=== PATIENT | female | born 1985 | race Caucasian/White ===

== ENCOUNTER 2016-12-20 13:00 | Outpatient (RCR) ==
[2016-04-21 19:46] VITALS: BMI 35.5
--- NOTE | 2016-12-04 15:06 | RS.OPPTEV2 ---
Date of Note: 12/04/16 Visit #: 1 Date of Evaluation: 12/04/16 Payer Source: Medicaid Date of Onset/Injury/Change in Status: 05/25/16 Surgery Performed?: No Treatment Diagnosis: Right patellar chondromalacia History of Condition/Mechanism of Injury:: Patient has had ongoing pain for ~ 6 months. No specific injury occurred but she has been having increasing pian and stiffness over time. She was seen by an orthopedic who has referred her to PT for 5 wks for chondromalacia of the right knee. Prior Level of Function.....Patient was independent with: ADL's, Self Care, Work /Vocation, Caregiving, Ambulation/Mobility, Community Integration/Access Functional Limitations: Sleep, Lifting, Carrying, Sitting Current Subjective/complaints:: Right knee pain with some discomfort at all times. Sitting is her worst position. Treatment Side (optional): Right Medical History Medical History Comments:: Hx of left patellar fx as a child. Smoking Status: Current some day smoker Pain Assessment - Pain Description Pain Location: right mediodistal knee Pain Description: Aching Pain Description: Pain radiates into the mid medial calf at times. Current Pain Intensity: 3/10 Worst Pain Intensity: 10/10 Functional Outcome Measure LE Functional Scale: 37 - G Codes & Severity Modifier G Codes & Modifier: NA Source of G Code score: NA Observation - Observation Inspection: Patient has bilateral ankle pronation and flat arches. Gait - Gait Pattern General Gait Pattern Observation: No Deviations/Normal Knee ROM: Bilaterally WFL's Knee Muscle Strength: Left WFL's - Right Knee Strength Right Knee Extension: 4 Good Right Knee Flexion: 4 Good Comments: Minimal pain with testing in the right knee. - Special Tests Knee Anterior Drawer Test: Negative Left Knee Posterior Drawer Test: Negative Left Knee Valgus Stress Test: Negative Left Knee Varus Stress Test: Negative Left Patellar Compression Test: Negative Left Palpation Palpation Findings: None/Normal Sensation - Sensation Sensation Description: Within Normal Limits Interventions - Exercise/Activities/Manual Therapy Exercises/Activities: Patient was instructed on the need to be assessed and obtain orthotics for correction of ankle deviations. She verbalized understanding. Manual Therapy: NA - Charges Total Direct Minutes: 35 Total Treatment Time: 35 Procedures billed for this date of service:: PT Marcela (Low) Assessment Assessment: Right medial knee pain and RLE weakness. Patient Education: Education of diagnosis, Body/Joint mechanics, Activity Modification, Education of Plan of Care Rehab Potential: Good Short Term Goals Goal #1: Intermittent right knee discomfort. Goal to be met by: 12/21/16 Goal #2: Average right knee pain 3-4/10 Goal to be met by: 12/21/16 Goal #3: Patient independent in beginning HEP. Goal to be met by: 12/21/16 Assisted Goals Goal #1: Only occasional right knee pain. Goal to be met by: 01/11/17 Goal #2: 5/5 RLE strength for stability Goal to be met by: 01/11/17 Goal #3: Patient is unawakened by right knee pain. Goal to be met by: 01/11/17 Goal #4: Independent with HEP for DC. Goal to be met by: 01/11/17 Plan - Treatment to be Provided Procedures: Therapeutic Exercises, Therapeutic Activity, Gait Training, Manual Therapy, Splinting/Taping, Patient Education Modalities: Electrical Stimulation, Ultrasound/Phonophoresis, Class IV Laser, Cryotherapy, Hot Packs - Treatment Plan Frequency: 3 X week Duration: 6 weeks ORDER # VISITS AND/OR THROUGH DATE: 01/11/17 - Treatment Code (1) Chondromalacia of both patellae Code(s): M22.41
--- NOTE | 2016-12-07 14:32 | RS.OPPTDN ---
Subjective Date of Note: 12/07/16 Visit #: 2 Date of Evaluation: 12/04/16 Payer Source: Medicaid Treatment Diagnosis: Right patellar chondromalacia Current Subjective/complaints:: Patient says she has pain to the medial and distal portion of the knee. 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 Pain Assessment - Pain Description Pain Location: right mediodistal knee Pain Description: Aching Pain Description: Pain radiates into the mid medial calf at times. Current Pain Intensity: 3/10 - Treatment Modality: Ultrasound Parameters/Method Applied: Pulsed @ 20%, 1.0 w/cm2 to the R medial and distal knee x 12 mins Patient Position: Supine Interventions - Exercise/Activities/Manual Therapy Exercises/Activities: Patient performs QS, pillow squeezes, hip abd, SAQ, SLR ( 3x5) 2x10. Total minutes of Exercise: 17 Manual Therapy: NA HOME EXERCISE PROGRAM: Pillow squeezes, QS, SLR. Ice massage - Charges Total Direct Minutes: 29 Total Treatment Time: 29 Procedures billed for this date of service:: u/s, ex Assessment: Patient with mod pain to the R medial and distal knee as well as deep joint line pain. She has pain with ambulation. She appeared to sarina all therex well, showing some fatigue with SLR, so reps were reduced. Patient Education: Education of diagnosis, Body/Joint mechanics, Home Exercise Program, Home Safety, Activity Modification, Education of Plan of Care Short Term Goals Goal #1: Intermittent right knee discomfort. Goal to be met by: 12/21/16 Goal #2: Average right knee pain 3-4/10 Goal to be met by: 12/21/16 Goal #3: Patient independent in beginning HEP. Goal to be met by: 12/21/16 [place] Goals Goal #1: Only occasional right knee pain. Goal to be met by: 01/11/17 Goal #2: 5/5 RLE strength for stability Goal to be met by: 01/11/17 Goal #3: Patient is unawakened by right knee pain. Goal to be met by: 01/11/17 Goal #4: Independent with HEP for DC. Goal to be met by: 01/11/17 Plan PLAN OF CARE EXPIRES ON:: 01/11/17 ORDER # VISITS AND/OR THROUGH DATE: 01/11/17 PLAN: Continue Plan of Care
--- NOTE | 2016-12-12 12:01 | RS.OPPTDN ---
Subjective Date of Note: 12/12/16 Visit #: 3 Date of Evaluation: 12/04/16 Payer Source: Medicaid Treatment Diagnosis: Right patellar chondromalacia Current Subjective/complaints:: Patient reports elevated knee pain after last session.She reports the BIOFREEZE helps. Pain Assessment - Pain Description Pain Location: right mediodistal knee Pain Description: Aching Pain Description: superior aspect of the patella Current Pain Intensity: 3/10 - Treatment Modality: Ultrasound Parameters/Method Applied: 10 mins. ,20% cycle,@ 1.5 w/cm2 to R patellar area. Interventions - Exercise/Activities/Manual Therapy Exercises/Activities: 20 mins. quad sets,SAQ's,SLR's,also with hip in ER for VMO strengthening.HEP review. Total minutes of Exercise: 20 Manual Therapy: NA Total minutes of Manual Therapy: 0 HOME EXERCISE PROGRAM: Pillow squeezes, QS, SLR. Ice massage - Charges Total Direct Minutes: 30 Total Treatment Time: 30 Procedures billed for this date of service:: US,ex 1 Assessment: Patient is very attentive and motivated to improve .She has good quad firing with exercises ,with report of tightness,but no sharp pain in open chain motion.She reports increased aching inthe medial aspect of the R knee with VMO strengthening. Patient Education: Education of diagnosis, Body/Joint mechanics, Home Exercise Program, Home Safety, Activity Modification, Education of Plan of Care Patient demonstrates compliance with HEP?: Yes Short Term Goals Goal #1: Intermittent right knee discomfort. Goal to be met by: 12/21/16 Progress towards Goal:: Progressing Goal #2: Average right knee pain 3-4/10 Goal to be met by: 12/21/16 Progress towards Goal:: Progressing Goal #3: Patient independent in beginning HEP. Goal to be met by: 12/21/16 Progress towards Goal:: Progressing [employer] Goals Goal #1: Only occasional right knee pain. Goal to be met by: 01/11/17 Goal #2: 5/5 RLE strength for stability Goal to be met by: 01/11/17 Goal #3: Patient is unawakened by right knee pain. Goal to be met by: 01/11/17 Goal #4: Independent with HEP for DC. Goal to be met by: 01/11/17 Plan PLAN OF CARE EXPIRES ON:: 01/11/17 ORDER # VISITS AND/OR THROUGH DATE: 01/11/17 PLAN: Continue Plan of Care
--- NOTE | 2016-12-18 15:14 | RS.OPPTDN ---
Subjective Date of Note: 12/18/16 Visit #: 4 Date of Evaluation: 12/04/16 Payer Source: Medicaid Treatment Diagnosis: Right patellar chondromalacia Current Subjective/complaints:: Patient reports the R knee seems to hurt more than it did before therapy.We discussed modifying her exercises to possibly protect the knee more. Pain Assessment - Pain Description Pain Location: right mediodistal knee Pain Description: Aching Pain Description: superior aspect of the patella and medial of knee joint line Current Pain Intensity: not rated, - Treatment Modality: Ultrasound Parameters/Method Applied: 10 mins. @ 20%,1.0 w/cm2 to R patellar borders. Patient Position: Supine Interventions - Exercise/Activities/Manual Therapy Exercises/Activities: 20 mins. quad sets,SLR's only today,then patient education of knee anatomy and joint protection. Total minutes of Exercise: 20 Manual Therapy: NA Total minutes of Manual Therapy: 0 HOME EXERCISE PROGRAM: Pillow squeezes, QS, SLR. Ice massage - Charges Total Direct Minutes: 30 Total Treatment Time: 30 Procedures billed for this date of service:: US,ex Assessment: Patient has good return demo of exercises today,we discussed to avoid exercises that involve excessive flexion of the knee,especially if weight bearing. Patient Education: Education of diagnosis, Body/Joint mechanics, Home Exercise Program, Home Safety, Activity Modification, Education of Plan of Care Patient demonstrates compliance with HEP?: Yes Short Term Goals Goal #1: Intermittent right knee discomfort. Goal to be met by: 12/21/16 (more consistent pain ) Progress towards Goal:: Regressing Goal #2: Average right knee pain 3-4/10 Goal to be met by: 12/21/16 Goal #3: Patient independent in beginning HEP. Goal to be met by: 12/21/16 Progress towards Goal:: Progressing [employer] Goals Goal #1: Only occasional right knee pain. Goal to be met by: 01/11/17 Progress towards goal: Regressing Goal #2: 5/5 RLE strength for stability Goal to be met by: 01/11/17 Goal #3: Patient is unawakened by right knee pain. Goal to be met by: 01/11/17 Goal #4: Independent with HEP for DC. Goal to be met by: 01/11/17 Plan PLAN OF CARE EXPIRES ON:: 02/17/17 ORDER # VISITS AND/OR THROUGH DATE: 01/11/17 PLAN: Continue Plan of Care
--- NOTE | 2016-12-20 15:46 | RS.OPPTDN ---
Subjective Date of Note: 12/20/16 Visit #: 5 Date of Evaluation: 12/04/16 Payer Source: Medicaid Treatment Diagnosis: Right patellar chondromalacia Current Subjective/complaints:: Patient says she is now hurting underneath the R patella. She says she is no longer hurting on the sides of her knee and hopes it is not getting worse. States her pain is constant and moderate at the moment. Pain Assessment - Pain Description Pain Location: under the R patella Pain Description: Aching Pain Description: superior aspect of the patella and medial of knee joint line Current Pain Intensity: elevated - Treatment Modality: Ultrasound Parameters/Method Applied: using hydrocortisone to the R proximal patella and over the patella continuous @ 1.5 w/cm2, 3 mHz x 6 mins and then 6 mins pulsed @ 20% 1.0 w/cm2. Patient Position: Supine Interventions - Exercise/Activities/Manual Therapy Exercises/Activities: 13 mins. quad sets,SLR's, hip abd only today, Patient education on phonophoresis and continuing cryotherapy at home. Manual Therapy: NA HOME EXERCISE PROGRAM: Pillow squeezes, QS, SLR. Ice massage - Charges Total Direct Minutes: 25 Total Treatment Time: 25 Procedures billed for this date of service:: u/s, ex Assessment: Modified treatment to add hydrocortisone cream to further assist with pain reduction during u/s. Patient with elevated pain today which she points to the R patella proximally. She denies having pain to the medial/ lateral borders. No significant change noted. Patient Education: Education of diagnosis, Body/Joint mechanics, Home Exercise Program, Home Safety, Activity Modification, Education of Plan of Care Patient demonstrates compliance with HEP?: Yes Short Term Goals Goal #1: Intermittent right knee discomfort. Goal to be met by: 12/21/16 (more consistent pain ) Progress towards Goal:: Regressing Goal #2: Average right knee pain 3-4/10 Goal to be met by: 12/21/16 Goal #3: Patient independent in beginning HEP. Goal to be met by: 12/21/16 Progress towards Goal:: Progressing [employer] Goals Goal #1: Only occasional right knee pain. Goal to be met by: 01/11/17 Progress towards goal: Regressing Goal #2: 5/5 RLE strength for stability Goal to be met by: 01/11/17 Goal #3: Patient is unawakened by right knee pain. Goal to be met by: 01/11/17 Goal #4: Independent with HEP for DC. Goal to be met by: 01/11/17 Plan PLAN OF CARE EXPIRES ON:: 01/11/17 ORDER # VISITS AND/OR THROUGH DATE: 01/11/17 PLAN: Continue Plan of Care (continue with phonophoresis to verify any change in symptoms)
--- NOTE | 2017-01-01 14:21 | RS.QUICKDC ---
Discharge from PT Date of Discharge: 01/01/17 Number of Visits: 5 Reason for Discharge: Patient has not seen any improvement with knee pain. She admitted decreased pain at the medial/lateral border of the patella (R), but pain is moderate under the patella. She felt no relief with adding hydrocortisone for phonophoresis. HEP was given for general strengthening.
== END 2016-12-25 ==
PROVIDERS: ATTEND Orthopaedic Surgery
DX: M22.41 Chondromalacia patellae, right knee (principal)

== ENCOUNTER 2017-08-27 09:05 | Outpatient (CLI) ==
[2016-04-21 19:46] VITALS: BMI 35.5
[2017-08-27 09:43] LABS: BASOPHILS # (AUTO) 0.1 K/uL (0-0.2); BASOPHILS % (AUTO) 0.5 % (0.0-3.0); EOSINOPHILS # (AUTO) 0.2 K/ul (0.0-0.7); EOSINOPHILS % (AUTO) 1.8 % (0.0-7.0); HEMOGLOBIN 13.2 g/dl (12.0-16.0); IMMATURE GRANULOCYTE % (AUTO) 0.2 % (0.0-5.0); LYMPHOCYTES % (AUTO) 21.1 (10.0-50.0); MEAN CORPUSCULAR HEMOGLOBIN 28.5 pg (27.0-31.0); MEAN CORPUSCULAR HGB CONC 33.8 (31.8-35.4); MEAN CORPUSCULAR VOLUME 84.2 fl (81.0-99.0); MONOCYTES # (AUTO) 0.5 K/uL (0.4-2.0); MONOCYTES % (AUTO) 4.9 (0-10); NEUTROPHILS # (AUTO) 6.6 K/ul (2.0-6.9); NEUTROPHILS % (AUTO) 71.5; PLATELET COUNT 297 10^3/uL (140-440); RED BLOOD COUNT 4.63 10^6/ul (4.20-5.40); WHITE BLOOD COUNT 9.26 K/ul (4.6-10.2)
[2017-08-27 09:47] LABS: BILIRUBIN,URINE Negative (NEGATIVE); KETONES,URINE Negative (NEGATIVE); LEUKOCYTE ESTERASE ,URINE Negative (NEGATIVE); NITRITE,URINE Negative (NEGATIVE); PH,URINE 5.5 (5-9); PROTEIN,URINE Negative (NEGATIVE); URINE, BLOOD Negative (NEGATIVE)
[2017-08-27 09:52] LABS: ADD URINE MICROSCOPIC NO
[2017-08-27 10:24] LABS: ALBUMIN 3.6 g/dL (3.4-5.0); ALBUMIN/GLOBULIN RATIO 0.97; ANION GAP 10.1; BILIRUBIN,DIRECT 0.15 mg/dL (0.00-0.30); BILIRUBIN,TOTAL 0.38 mg/dL (0.00-1.20); BUN/CREATININE RATIO 16.9; CALCIUM 9.4 mg/dL (8.2-10.2); CHOL/HDL RATIO 4.6 (4.5-5.5); CREATININE 0.71 mg/dL (0.60-1.30); PHOSPHORUS 3.7 mg/dL (2.5-4.9); POTASSIUM 4.1 mmol/L (3.5-5.10); TOTAL PROTEIN 7.3 g/dL (6.4-8.2)
[2017-08-28 06:12] LABS: LUTEINIZING HORMONE 5.9 mIU/mL (.)
== END 2017-08-27 09:06 | disposition home or self-care (01) ==
LOC: LAB 09:05
PROVIDERS: ATTEND Nurse Practitioner
DX: F39 Unspecified mood [affective] disorder (principal); F41.9 Anxiety disorder, unspecified; H35.52 Pigmentary retinal dystrophy; H53.9 Unspecified visual disturbance; R51 Headache
CPT/HCPCS: 36415; 80053; 80061; 81001; 82248; 83001; 83002; 84100; 84439; 84443; 84480; 85025

== ENCOUNTER 2017-10-28 12:17 | Outpatient (CLI) ==
[2016-04-21 19:46] VITALS: BMI 35.5
== END 2017-10-28 12:18 | disposition home or self-care (01) ==
LOC: CAR 12:17
PROVIDERS: ATTEND Nurse Practitioner
DX: R55 Syncope and collapse (principal)
CPT/HCPCS: 93005; 93010